=== PATIENT | female | born 1965 | race African-American/Black ===

== ENCOUNTER 2018-09-21 15:52 | Emergency (ER) | payer SELFPAY ==
[~2018-09-21] VITALS: Ht 167.6 cm; Wt 68.0 kg
[2018-09-21 16:08] VITALS: BP 150/88
--- NOTE | 2018-09-21 16:44 | PHYS DOC ---
Past Medical History Past Medical History: No Pertinent History Past Surgical History: No Surgical History Alcohol Use: Occasionally Drug Use: None Adult General Chief Complaint Chief Complaint: LOWER BACK PAIN OR INJURY HPI HPI Patient is a 52 year old female in no significant medical history who presents to the ED today complaining of mild intermittent left low back pain radiating to the left lower extremity for 3 weeks. Patient denies any known injury. She states the pain is worse on certain movements. She states she has not taken anything specifically to relieve the pain. Denies any loss of bowel bladder function, denies any numbness or tenderness to bilateral lower extremities. Review of Systems Review of Systems Constitutional: Denies fever or chills [] Eyes: Denies change in visual acuity, redness, or eye pain [] HENT: Denies nasal congestion or sore throat [] Respiratory: Denies cough or shortness of breath [] Cardiovascular: No additional information not addressed in HPI [] GI: Denies abdominal pain, nausea, vomiting, bloody stools or diarrhea [] : Denies dysuria or hematuria [] Musculoskeletal: Reports left low back pain radiating to the left lower extremity. Integument: Denies rash or skin lesions [] Neurologic: Denies headache, focal weakness or sensory changes [] All other systems were reviewed and found to be within normal limits, except as documented in this note. Allergies Allergies Allergies Coded Allergies Type Severity Reaction Last Updated Verified No Known Drug Allergies 09/21/18 No Physical Exam Physical Exam Constitutional: Well developed, well nourished, no acute distress, non-toxic appearance. [] HENT: Normocephalic, atraumatic, bilateral external ears normal, oropharynx moist, no oral exudates, nose normal. [] Eyes: PERRLA, EOMI, conjunctiva normal, no discharge. [] Neck: Normal range of motion, no tenderness, supple, no stridor. [] Cardiovascular:Heart rate regular rhythm, no murmur [] Lungs & Thorax: Bilateral breath sounds clear to auscultation [] Abdomen: Bowel sounds normal, soft, no tenderness, no masses, no pulsatile masses. [] Skin: Warm, dry, no erythema, no rash. [] Back: Tenderness on palpation of the left SI joint tenderness, no CVA tendernes s. Negative bilateral straight leg raises Extremities: No tenderness, no cyanosis, no clubbing, ROM intact, no edema. [] Neurologic: Alert and oriented X 3, normal motor function, normal sensory function, no focal deficits noted. [] Psychologic: Affect normal, judgement normal, mood normal. [] Current Patient Data Vital Signs Vital Signs Date Time Temp Pulse Resp B/P (MAP) Pulse Ox O2 Delivery O2 Flow Rate FiO2 09/21/18 16:08 99.0 91 18 150/88 (108) 96 Room Air 99.0 Lab Values Laboratory Tests Test 09/21/18 16:13 Urine Color Yellow Urine Clarity Clear Urine pH 5.5 Urine Specific [place] 1.020 Urine Protein Negative mg/dL (NEG-TRACE) Urine Glucose (UA) Negative mg/dL (NEG) Urine Ketones (Stick) Negative mg/dL (NEG) Urine Blood Moderate (NEG) Urine Nitrite Negative (NEG) Urine Bilirubin Negative (NEG) Urine Urobilinogen Dipstick 0.2 mg/dL (0.2 mg/dL) Urine Leukocyte Esterase Small (NEG) Urine RBC 3-5 /HPF (0-2) Urine WBC 1-4 /HPF (0-4) Urine Squamous Epithelial Cells Occ /LPF Urine Bacteria Moderate /HPF (0-FEW) Urine Mucus Mod /LPF EKG EKG [] Radiology/Procedures Radiology/Procedures [] Course & Med Decision Making Course & Med Decision Making Pertinent Labs and Imaging studies reviewed. (See chart for details) This is a 52-year-old female patient presenting to the ED today with left low back pain radiating to the left lower extremity. No cauda equina syndrome symptoms. Positive for UTI, discharged on Bactrim for 3 days. Discharged on diclofenac, cyclobenzaprine, Medrol Dosepak for sciatica. Provided pain clinic for follow-up as an outpatient. Dragon Disclaimer Dragon Disclaimer This electronic medical record was generated, in whole or in part, using a voice recognition dictation system. Departure Departure Impression: Primary Impression: Urinary tract infection Additional Impression: Sciatica, left side Disposition: 01 HOME, SELF-CARE Condition: STABLE (neurologic he is usually twice usually joint disease is to go home.) Referrals: NO PCP (PCP) Follow up in two weeks Patient Instructions: Sciatica, [id number], Urinary Tract Infection Additional Instructions: You were evaluated in the emergency room with pain suspicious of sciatica nerve pain, you also have infection in your urine, we put you on antibiotics, ensure you complete them. Take the rest of the medications as ordered, do not drive or operate machinery on the cyclobenzaprine. Scripts Sulfamethoxazole/Trimethoprim (BACTRIM DS TABLET) 1 Each Tablet 1 TAB PO BID, #6 TAB Prov: NICHOLAS MACKEY APRN 09/21/18 Methylprednisolone (MEDROL) 4 Mg Tab.ds.pk 1 PKG PO UD, #1 PKG Prov: NICHOLAS MACKEY APRN 09/21/18 Diclofenac Sodium (DICLOFENAC SODIUM) 50 Mg Tablet.dr 1 TAB PO BID, #30 TAB 0 Refills Prov: NICHOLAS MACKEY APRN 09/21/18 Cyclobenzaprine Hcl (CYCLOBENZAPRINE HCL) 10 Mg Tablet 1 TAB PO TID, #30 TAB Prov: NICHOLAS MACKEY APRN 09/21/18 Problem Qualifiers Primary Impression: Urinary tract infection Urinary tract infection type: site unspecified Hematuria presence: without hematuria Qualified Codes: N39.0 - Urinary tract infection, site not specified NICHOLAS MACKEY APRN Sep 21, 2018 16:44
[2018-09-21 17:02] LABS: BILIRUBIN,URINE NEGATIVE (NEG); CLARITY,URINE CLEAR; COLOR,URINE YELLOW; NITRITE,URINE NEGATIVE (NEG); PH,URINE 5.5; PROTEIN,URINE NEGATIVE (NEG-TRACE); UROBILINOGEN,URINE 0.2 mg/dL (0.2 mg/dL)
[2018-09-21 17:13] LABS: BACTERIA,URINE MODERATE /HPF (0-FEW); SQUAMOUS EPITHELIAL CELL,UR OCC /LPF
[2018-09-21] MEDS ORDERED: DICL50TA4 PO (17:23)
[2018-09-21] MEDS ORDERED: CYCL10TA2 PO (17:23)
[2018-09-21] MEDS ORDERED: SULF1TAB24 PO (17:23)
[2018-09-21] MEDS ORDERED: METH4TAB2 PO (17:23)
== END 2018-09-21 17:33 | disposition home or self-care (01) ==
LOC: ER 15:52
DX: N39.0 Urinary tract infection, site not specified (principal); M54.42 Lumbago with sciatica, left side
CPT/HCPCS: 81001; 87086; 99284

== ENCOUNTER 2020-07-08 07:12 | Emergency (ER) | payer SELFPAY ==
[~2020-07-08] VITALS: Ht 167.6 cm; Wt 81.8 kg
[~2020-07-08 07:12] MED LIST: CYCL10TA2 PO; DICL50TA4 PO; METH4TAB2 PO; SULF1TAB24 PO
[2020-07-08] MEDS ORDERED: ONDANSETRON PF 4 MG/2 ML VIAL. IVP ONE (07:45)
[2020-07-08] MEDS ORDERED: IV NORMAL SALINE 1000ML BAG 1,000 ML IV ONE ×2 (07:45→09:00)
[2020-07-08] MEDS ORDERED: MORPHINE SULFATE 4 MG/ML VIAL. ONE (07:51)
[2020-07-08 07:52] LABS: BASO # 0.1 x10^3/uL (0.0-0.2); BASO % 1 % (0-3); EOS % 0 % (0-3); HEMATOCRIT 33.5 % (36.0-47.0); HEMOGLOBIN 11.4 g/dL (12.0-15.5); LYMPH # 0.9 x10^3/uL (1.0-4.8); LYMPH % 8 % (24-48); MEAN CORPUSCULAR HEMOGLOBIN 29 pg (25-35); MEAN CORPUSCULAR HGB CONC 34 g/dL (31-37); MEAN CORPUSCULAR VOLUME 86 fL (79-100); MONO # 0.4 x10^3/uL (0.0-1.1); MONO % 4 % (0-9); NEUT # 9.6 x10^3/uL (1.8-7.7); NEUT % 87 % (31-73); PLATELET COUNT 296 x10^3/uL (140-400); RED BLOOD COUNT 3.91 x10^6/uL (3.50-5.40); RED CELL DISTRIBUTION WIDTH 13.3 % (11.5-14.5); WHITE BLOOD COUNT 11.1 x10^3/uL (4.0-11.0)
[2020-07-08] MEDS ORDERED: MORPHINE SULFATE 4 MG/ML VIAL. IV ONE (08:00)
[2020-07-08 08:06] LABS: CALCIUM 9.4 mg/dL (8.5-10.1); CREATININE 1.3 mg/dL (0.6-1.0); GFR 51.3; POTASSIUM 3.7 mmol/L (3.5-5.1)
[2020-07-08 08:12] LABS: ALBUMIN 3.8 g/dL (3.4-5.0); ALBUMIN/GLOBULIN RATIO 0.8 (1.0-1.7); TOTAL BILIRUBIN 0.3 mg/dL (0.2-1.0); TOTAL PROTEIN 8.5 g/dL (6.4-8.2)
[2020-07-08] MEDS ORDERED: IOHEXOL 300 MG/ML 100ML VIAL. IV ONE (08:45)
[2020-07-08] MEDS ORDERED: CONTRAST GIVEN. MC PRN (08:45)
--- NOTE | 2020-07-08 09:02 | RAD ---
CT of the abdomen pelvis with contrast. HISTORY: Right lower quadrant abdominal pain CT scan the abdomen pelvis was done using 60 mL Omnipaque 300 contrast. There are bilateral breast no dules, correlation with any previous mammography or breast ultrasound be of benefit. Lung bases are c lear. There is no effusion. Liver is normal in appearance. Spleen is unremarkable. Adrenal glands are normal. Pancreas is unremarkable. Left kidney is normal. There is decreased enhancement of the right kidney. There is right hydronephrosis. There is a 5 mm calculus in the proximal right ureter. Append ix is normal. There is an umbilical hernia. There is no bowel obstruction or ascites. There is a prom inent pedunculated leiomyoma extending off the left side of the uterus measuring 5.8 x 3.9 cm. Ovarie s appear normal. There is diverticulosis of the colon without an acute diverticulitis. There is no ca lcified gallstone in the gallbladder or gallbladder wall thickening IMPRESSION: 1. 5 mm calculus in the proximal right ureter with right hydronephrosis and right renal obstruction. 2. Normal appendix. 3. Prominent uterine leiomyoma 4. Multiple breast nodules, mammography and breast ultrasound recommended unless the patient's had th cynthia recently evaluated. 5. Umbilical hernia. PQRS Compliance Statement: One or more of the following individualized dose reduction techniques were utilized for this examinat ion: 1. Automated exposure control 2. Adjustment of the mA and/or kV according to patient size 3. Use of iterative reconstruction technique Electronically signed by: Marlon Perez MD (07/08/2020 9:00 AM) [facility]
--- NOTE | 2020-07-08 09:06 | PHYS DOC ---
Past Medical History Past Medical History: No Pertinent History Past Surgical History: No Surgical History Smoking Status: Never Smoker Alcohol Use: None Drug Use: None General Adult EDM: Chief Complaint: NAUSEA/VOMITING/DIARRHA HPI: HPI: Patient is a 54 year old female who presented to ER for evaluation of right side abdominal pain since yesterday. Patient also has some nausea vomiting. Patient denies any cough or fever. Patient described the pain as sharp aching in nature, patient denies any exposure to anybody with coronavirus. Patient said nothing make the pain worse or better. Review of Systems: Review of Systems: Constitutional: Denies fever or chills. [] Eyes: Denies change in visual acuity. [] HENT: Denies nasal congestion or sore throat. [] Respiratory: Denies cough or shortness of breath. [] Cardiovascular: Denies chest pain or edema. [] GI: Positive for right abdominal pain with nausea vomiting, no diarrhea : Denies dysuria. [] Musculoskeletal: Denies back pain or joint pain. [] Integument: Denies rash. [] Neurologic: Denies headache, focal weakness or sensory changes. [] Endocrine: Denies polyuria or polydipsia. [] Lymphatic: Denies swollen glands. [] Psychiatric: Denies depression or anxiety. [] Heart Score: Risk Factors: Risk Factors: DM, Current or recent (<one month) smoker, HTN, HLP, family history of CAD, obesity. Risk Scores: Score 0 - 3: 2.5% MACE over next 6 weeks - Discharge Home Score 4 - 6: 20.3% MACE over next 6 weeks - Admit for Clinical Observation Score 7 - 10: 72.7% MACE over next 6 weeks - Early Invasive Strategies Current Medications: Current Medications Medications (Trade) Dose Ordered Sig/Rachell Start Time Stop Time Status Last Admin Dose Admin Info (CONTRAST GIVEN -- Rx MONITORING) 1 each PRN DAILY PRN 07/08/20 08:45 07/10/20 08:44 Iohexol (Omnipaque 300 Mg/ml) 60 ml 1X ONCE 07/08/20 08:45 07/08/20 08:46 DC 07/08/20 08:51 60 ML Morphine Sulfate (Morphine Sulfate) 4 mg STK-MED ONCE 07/08/20 07:51 07/08/20 07:52 DC Ondansetron HCl (Zofran) 4 mg 1X ONCE 07/08/20 07:45 07/08/20 07:46 DC 07/08/20 07:55 4 MG Sodium Chloride 1,000 ml @ 1,000 mls/hr 1X ONCE 07/08/20 09:00 07/08/20 09:59 Allergies: Allergies: Allergies Coded Allergies Type Severity Reaction Last Updated Verified No Known Drug Allergies 09/21/18 No Physical Exam: PE: Constitutional: Well developed, well nourished, in mild acute distress due to pain, non-toxic appearance. [] HENT: Normocephalic, atraumatic, bilateral external ears normal, oropharynx moist, no oral exudates, nose normal. [] Eyes: PERRLA, EOMI, conjunctiva normal, no discharge. [] Neck: Normal range of motion, no tenderness, supple, no stridor. [] Cardiovascular:Heart rate regular rhythm, no murmur [] Lungs & Thorax: Bilateral breath sounds clear to auscultation [] Abdomen: Bowel sounds normal, soft, right lower abdominal pain, right CVA tenderness, no guarding, no rebound. Skin: Warm, dry, no erythema, no rash. [] Back: No tenderness, right CVA tenderness to palpation. [] Extremities: No tenderness, no cyanosis, no clubbing, ROM intact, no edema. [] Neurologic: Alert and oriented X 3, normal motor function, normal sensory function, no focal deficits noted. [] Psychologic: Affect normal, judgement normal, mood normal. [] Current Patient Data: Labs: Laboratory Tests Test 07/08/20 07:46 White Blood Count 11.1 x10^3/uL (4.0-11.0) H Red Blood Count 3.91 x10^6/uL (3.50-5.40) Hemoglobin 11.4 g/dL (12.0-15.5) L Hematocrit 33.5 % (36.0-47.0) L Mean Corpuscular Volume 86 fL (79-100) Mean Corpuscular Hemoglobin 29 pg (25-35) Mean Corpuscular Hemoglobin Concent 34 g/dL (31-37) Red Cell Distribution Width 13.3 % (11.5-14.5) Platelet Count 296 x10^3/uL (140-400) Neutrophils (%) (Auto) 87 % (31-73) H Lymphocytes (%) (Auto) 8 % (24-48) L Monocytes (%) (Auto) 4 % (0-9) Eosinophils (%) (Auto) 0 % (0-3) Basophils (%) (Auto) 1 % (0-3) Neutrophils # (Auto) 9.6 x10^3/uL (1.8-7.7) H Lymphocytes # (Auto) 0.9 x10^3/uL (1.0-4.8) L Monocytes # (Auto) 0.4 x10^3/uL (0.0-1.1) Eosinophils # (Auto) 0.0 x10^3/uL (0.0-0.7) Basophils # (Auto) 0.1 x10^3/uL (0.0-0.2) Platelet Estimate Pending Sodium Level 136 mmol/L (136-145) Potassium Level 3.7 mmol/L (3.5-5.1) Chloride Level 102 mmol/L (98-107) Carbon Dioxide Level 23 mmol/L (21-32) Anion Gap 11 (6-14) Blood Urea Nitrogen 12 mg/dL (7-20) Creatinine 1.3 mg/dL (0.6-1.0) H Estimated GFR (Cockcroft-Gault) 51.3 BUN/Creatinine Ratio 9 (6-20) Glucose Level 137 mg/dL (70-99) H Calcium Level 9.4 mg/dL (8.5-10.1) Total Bilirubin 0.3 mg/dL (0.2-1.0) Aspartate Amino Transferase (AST) 15 U/L (15-37) Alanine Aminotransferase (ALT) 23 U/L (14-59) Alkaline Phosphatase 60 U/L (46-116) Total Protein 8.5 g/dL (6.4-8.2) H Albumin 3.8 g/dL (3.4-5.0) Albumin/Globulin Ratio 0.8 (1.0-1.7) L Lipase 70 U/L (73-393) L Laboratory Tests 07/08/20 07:46 Laboratory Tests 07/08/20 07:46 Vital Signs: Vital Signs Date Time Temp Pulse Resp B/P (MAP) Pulse Ox O2 Delivery O2 Flow Rate FiO2 07/08/20 07:55 18 Room Air 07/08/20 07:14 98.4 78 148/82 (104) 100 98.4 EKG: EKG: [] Radiology/Procedures: Radiology/Procedures: [][facility] [address] [place] [address] IMAGING REPORT Signed PATIENT: MATHIEU TATUM ACCOUNT: [id number] : 1965 LOCATION: ER AGE: 54 SEX: F EXAM STATUS: REG ER ORD. PHYSICIAN: JABARI RUIZ DO REASON: RLQ ABDOMINAL PAIN PROCEDURE: CT ABD PELV W/ IV CONTRST ONLY CT of the abdomen pelvis with contrast. HISTORY: Right lower quadrant abdominal pain CT scan the abdomen pelvis was done using 60 mL Omnipaque 300 contrast. There are bilateral breast nodules, correlation with any previous mammography or breast ultrasound be of benefit. Lung bases are clear. There is no effusion. Liver is normal in appearance. Spleen is unremarkable. Adrenal glands are normal. Pancreas is unremarkable. Left kidney is normal. There is decreased enhancement of the right kidney. There is right hydronephrosis. There is a 5 mm calculus in the proximal right ureter. Appendix is normal. There is an umbilical hernia. There is no bowel obstruction or ascites. There is a prominent pedunculated leiomyoma extending off the left side of the uterus measuring 5.8 x 3.9 cm. Ovaries appear normal. There is diverticulosis of the colon without an acute diverticulitis. There is no calcified gallstone in the gallbladder or gallbladder wall thickening IMPRESSION: 1. 5 mm calculus in the proximal right ureter with right hydronephrosis and right renal obstruction. 2. Normal appendix. 3. Prominent uterine leiomyoma 4. Multiple breast nodules, mammography and breast ultrasound recommended unless the patient's had these recently evaluated. 5. Umbilical hernia. PQRS Compliance Statement: One or more of the following individualized dose reduction techniques were utilized for this examination: 1. Automated exposure control 2. Adjustment of the mA and/or kV according to patient size 3. Use of iterative reconstruction technique Electronically signed by: Marlon Saldaña MD (07/08/2020 9:00 AM) [facility] DICTATED and SIGNED BY: MARLON SALDAÑA MD DATE: 07/08/20 [id number] 0 Course & Med Decision Making: Course & Med Decision Making Pertinent Labs and Imaging studies reviewed. (See chart for details) Patient is a 54-year-old female who presented to ER due to right abdominal pain, CT scan of the abdomen pelvic show right side proximal ureteral stone 5 mm with some hydronephrosis . Patient was given pain medication in ER, she felt much better, she was pain-free at the time of discharge. Patient says she already knew about the nodules in her breasts. Patient was given a copy of her lab work, CT scan report today, she will need to follow-up with a urologist for outpatient evaluation and treatment next week. Dragon Disclaimer: Dragon Disclaimer: This electronic medical record was generated, in whole or in part, using a voice recognition dictation system. Departure Departure Impression: Primary Impression: Kidney stone on right side Disposition: 01 DC HOME SELF CARE/HOMELESS Condition: IMPROVED Referrals: NO PCP (PCP) Please call this [facility] [place] [address] [facility] [place], [place] [address] [phone] Patient Instructions: Kidney Stones Additional Instructions: Thank you for visiting our Emergency Department. We appreciate you trusting us with your care. If any additional problems come up don't hesitate to return to visit us. Please follow up with your primary care provider so they can plan additional care if needed and know about the problem that you had. If symptoms worsen come back to the Emergency Department. Any concerning symptoms that start such as chest pain, shortness of air, weakness or numbness on one side of the body, running high fevers or any other concerning symptoms return to the ER. Scripts Ondansetron Hcl (ZOFRAN) 4 Mg Tablet 1 TAB PO Q6HRS PRN for NAUSEA, #15 TAB Prov: JABARI RUIZ DO 07/08/20 Tamsulosin Hcl (FLOMAX) 0.4 Mg Cap.er.24h 1 CAP PO DAILY for 10 Days, #10 CAP 11 Refills Prov: JABARI RUIZ DO 07/08/20 Hydrocodone/Acetaminophen (Hydrocodone-Acetamin 5-325 mg) 1 Each Tablet 1 EACH PO Q6HRS PRN for PAIN, #20 TAB Prov: JABARI RUIZ DO 07/08/20 JABARI RUIZ DO Jul 08, 2020 09:06
[2020-07-08 09:25] LABS: % LYMPHS 10 % (24-48); % MONOS 6 % (0-10); % SEGS 84 % (35-66); PLT ESTIMATE ADEQUATE (ADEQUATE)
[2020-07-08] MEDS ORDERED: TAMSULOSIN 0.4 MG CAP.ER.24H. PO ONE (09:30)
[2020-07-08] MEDS ORDERED: KETOROLAC 30 MG/ML VIAL. IVP ONE (09:30)
[2020-07-08 09:43] LABS: BILIRUBIN,URINE NEGATIVE (NEG); CLARITY,URINE CLEAR; COLOR,URINE YELLOW; NITRITE,URINE NEGATIVE (NEG); PH,URINE 6.5 (<5.0-8.0); PROTEIN,URINE NEGATIVE (NEG-TRACE); UROBILINOGEN,URINE 0.2 mg/dL (0.2 mg/dL)
[2020-07-08 10:20] LABS: BACTERIA,URINE 0 /HPF (0-FEW)
[2020-07-08] MEDS ORDERED: HYDR-2759 PO (10:51)
[2020-07-08] MEDS ORDERED: ONDA4TAB7 PO (10:51)
[2020-07-08] MEDS ORDERED: TAMS0.4C97 PO (10:51)
[2020-07-08 11:00] VITALS: BP 144/85
== END 2020-07-08 11:45 | disposition home or self-care (01) ==
LOC: ER 07:12
DX: N13.2 Hydronephrosis with renal and ureteral calculous obstruction (principal)
CPT/HCPCS: 36415; 74177; 80053; 81001; 81025; 83690; 85007; 85025; 96361; 96374; 96375; 99285; J1885; J2270; J2405; J7030; Q9967

== ENCOUNTER 2020-07-11 07:01 | Emergency (ER) | payer SELFPAY ==
[~2020-07-11] VITALS: Ht 167.6 cm; Wt 82.0 kg
[~2020-07-11 07:01] MED LIST changes: +HYDR-2759 PO; +ONDA4TAB7 PO; +TAMS0.4C97 PO
[2020-07-11] MEDS ORDERED: MORPHINE SULFATE 4 MG/ML VIAL. IV ONE (07:15)
[2020-07-11] MEDS ORDERED: ONDANSETRON PF 4 MG/2 ML VIAL. IVP ONE (07:15)
[2020-07-11] MEDS ORDERED: MORPHINE SULFATE 4 MG/ML VIAL. ONE (07:17)
[2020-07-11] MEDS ORDERED: KETOROLAC 15 MG/ML VIAL. IVP ONE (07:30)
[2020-07-11] MEDS ORDERED: IV NORMAL SALINE 1000ML BAG 1,000 ML IV ONE ×2 (07:30)
--- NOTE | 2020-07-11 07:33 | ED.ADGEN ---
Past Medical History Past Medical History: No Pertinent History Past Surgical History: No Surgical History Smoking Status: Never Smoker Alcohol Use: None Drug Use: None General Adult EDM: Chief Complaint: FLANK PAIN HPI: HPI: Patient is a 54 year old female presenting via EMS for worsening right flank pain. She was seen here 3 days ago and diagnosed with a right-sided kidney stone that was 5 mm. Sent home with Zofran and hydrocodone. Patient says around 1 AM the pain became more severe, she took hydrocodone without improvement. Patient states she is also had nausea and vomiting. Has not had a bowel movement in the last few days. Denies any other complaints or changes in urination. Patient states she has not been having any blood in the urine either. No prior history of kidney stones Review of Systems: Review of Systems: All other systems within normal limits except for as noted in the HPI Current Medications: Current Medications Medications (Trade) Dose Ordered Sig/Rachell Start Time Stop Time Status Last Admin Dose Admin Ketorolac Tromethamine (Toradol 15mg Vial) 15 mg 1X ONCE 07/11/20 07:30 07/11/20 07:31 DC 07/11/20 07:27 15 MG Morphine Sulfate (Morphine Sulfate) 4 mg STK-MED ONCE 07/11/20 07:17 07/11/20 07:18 DC Ondansetron HCl (Zofran) 4 mg 1X ONCE 07/11/20 07:15 07/11/20 07:17 DC 07/11/20 07:23 4 MG Sodium Chloride 1,000 ml @ 1,000 mls/hr 1X ONCE 07/11/20 07:30 07/11/20 08:29 DC 07/11/20 09:00 1,000 MLS/HR Allergies: Allergies: Allergies Coded Allergies Type Severity Reaction Last Updated Verified No Known Drug Allergies 09/21/18 No Physical Exam: PE: Constitutional: Well developed, well nourished, moderate acute distress, non- toxic appearance. [] HENT: Normocephalic, atraumatic, bilateral external ears normal, nose normal. [] Eyes: PERRLA, conjunctiva normal, no discharge. [] Neck: No rigidity, supple, no stridor. [] Cardiovascular: Regular rate and rhythm, brisk cap refill [] Lungs & Thorax: Non labored symmetric respirations, no tachypnea or respiratory distress [] Abdomen: Soft, nondistended, right flank and lower quadrant abdominal pain Skin: Warm, dry, no erythema, no rash. [] Back: Unremarkable Extremities: No deformities, range of motion grossly intact, no lower extremity edema [] Neurologic: Alert and oriented X 3, no focal deficits noted. [] Psychologic: Affect normal, judgement normal, mood normal. [] Current Patient Data: Labs: Laboratory Tests Test 07/11/20 07:34 07/11/20 08:13 White Blood Count 9.1 x10^3/uL (4.0-11.0) Red Blood Count 3.61 x10^6/uL (3.50-5.40) Hemoglobin 10.4 g/dL (12.0-15.5) L Hematocrit 31.1 % (36.0-47.0) L Mean Corpuscular Volume 86 fL (79-100) Mean Corpuscular Hemoglobin 29 pg (25-35) Mean Corpuscular Hemoglobin Concent 33 g/dL (31-37) Red Cell Distribution Width 12.7 % (11.5-14.5) Platelet Count 265 x10^3/uL (140-400) Neutrophils (%) (Auto) 81 % (31-73) H Lymphocytes (%) (Auto) 12 % (24-48) L Monocytes (%) (Auto) 7 % (0-9) Eosinophils (%) (Auto) 0 % (0-3) Basophils (%) (Auto) 1 % (0-3) Neutrophils # (Auto) 7.4 x10^3/uL (1.8-7.7) Lymphocytes # (Auto) 1.1 x10^3/uL (1.0-4.8) Monocytes # (Auto) 0.6 x10^3/uL (0.0-1.1) Eosinophils # (Auto) 0.0 x10^3/uL (0.0-0.7) Basophils # (Auto) 0.0 x10^3/uL (0.0-0.2) Sodium Level 135 mmol/L (136-145) L Potassium Level 3.7 mmol/L (3.5-5.1) Chloride Level 99 mmol/L (98-107) Carbon Dioxide Level 27 mmol/L (21-32) Anion Gap 9 (6-14) Blood Urea Nitrogen 8 mg/dL (7-20) Creatinine 1.2 mg/dL (0.6-1.0) H Estimated GFR (Cockcroft-Gault) 56.2 BUN/Creatinine Ratio 7 (6-20) Glucose Level 131 mg/dL (70-99) H Calcium Level 9.1 mg/dL (8.5-10.1) Total Bilirubin 0.2 mg/dL (0.2-1.0) Aspartate Amino Transferase (AST) 8 U/L (15-37) L Alanine Aminotransferase (ALT) 20 U/L (14-59) Alkaline Phosphatase 54 U/L (46-116) Total Protein 7.1 g/dL (6.4-8.2) Albumin 3.4 g/dL (3.4-5.0) Albumin/Globulin Ratio 0.9 (1.0-1.7) L Urine Collection Type Void Urine Color Yellow Urine Clarity Clear Urine pH 6.5 (<5.0-8.0) Urine Specific [place] <=1.005 (1.000-1.030) Urine Protein Negative mg/dL (NEG-TRACE) Urine Glucose (UA) Negative mg/dL (NEG) Urine Ketones (Stick) Negative mg/dL (NEG) Urine Blood Moderate (NEG) Urine Nitrite Negative (NEG) Urine Bilirubin Negative (NEG) Urine Urobilinogen Dipstick 0.2 mg/dL (0.2 mg/dL) Urine Leukocyte Esterase Negative (NEG) Urine RBC 1-2 /HPF (0-2) Urine WBC 0 /HPF (0-4) Urine Squamous Epithelial Cells Few /LPF Urine Bacteria Few /HPF (0-FEW) Laboratory Tests 07/11/20 07:34 Laboratory Tests 07/11/20 07:34 Vital Signs: Vital Signs Date Time Temp Pulse Resp B/P (MAP) Pulse Ox O2 Delivery O2 Flow Rate FiO2 07/11/20 07:01 99.0 77 20 153/85 (107) 99 Room Air 99.0 EKG: EKG: [] Heart Score: Risk Factors: Risk Factors: DM, Current or recent (<one month) smoker, HTN, HLP, family history of CAD, obesity. Risk Scores: Score 0 - 3: 2.5% MACE over next 6 weeks - Discharge Home Score 4 - 6: 20.3% MACE over next 6 weeks - Admit for Clinical Observation Score 7 - 10: 72.7% MACE over next 6 weeks - Early Invasive Strategies Radiology/Procedures: Radiology/Procedures: CT ABDOMEN+PELVIS WO INDICATION: RLQ/flank pain, present right kidney stone EXAM: Noncontrast CT of the abdomen and pelvis. Coronal and sagittal reformatted images were performed. PQRS compliance statement: One or more of the following individualized dose reduction techniques were utilized for this examination: 1. Automated exposure control 2. Adjustment of the mA and/or kV according to patient size 3. Use of iterative reconstruction technique COMPARISON: 07/08/2020 FINDINGS: No free air, free fluid, or fluid collection. Lower chest: The visualized lower lungs are aerated. No pleural or pericardial effusion. ABDOMEN: Liver: The noncontrast liver is homogeneous in attenuation. Gallbladder and biliary: Normal gallbladder without radiopaque stone. Normal caliber bile ducts. Spleen: Normal spleen. Pancreas: The noncontrast pancreas is homogeneous in attenuation without peripancreatic inflammatory changes. Adrenal glands: Normal adrenal glands. Kidneys and ureters: Mild right hydroureteronephrosis with a 5 mm calculus in the proximal ureter, progressed approximately 10 mm from the prior exam. GI tract: The stomach is decompressed and poorly evaluated. Normal caliber small bowel and colon. Normal appendix. Vascular structures: Normal caliber abdominal aorta. Lymph nodes: No lymphadenopathy in the abdomen or pelvis. PELVIS: Genitourinary system: Normal bladder. Myomatous uterus. SKELETAL STRUCTURES AND SOFT TISSUES: No acute osseous abnormality. Moderate sized periumbilical hernia containing a segment of small bowel without evidence of obstruction. Unchanged partially visualized breast nodules. IMPRESSION: 1. Mild right hydroureteronephrosis with a 5 mm calculus in the proximal ureter, which has progressed approximately 10 mm from exam of 07/08/2020. 2. Moderate-sized umbilical hernia containing a segment of small bowel without evidence of obstruction. 3. Multiple incompletely characterized breast nodules again noted, which should be further evaluated with mammography if not performed recently. [] Course & Med Decision Making: Course & Med Decision Making Pertinent Labs and Imaging studies reviewed. (See chart for details) Pain resolved. Pain likely due to small moving. No signs of urinary tract infection or kidney injury. [] Dragon Disclaimer: Dragon Disclaimer: This electronic medical record was generated, in whole or in part, using a voice recognition dictation system. Departure Departure Impression: Primary Impression: Kidney stone Disposition: 01 DC HOME SELF CARE/HOMELESS Condition: IMPROVED Referrals: NO PCP (PCP) Additional Instructions: Follow-up with [facility] [address] [place] [address] Scripts Ibuprofen (IBUPROFEN) 800 Mg Tablet 800 MG PO PRN Q8HRS PRN for PAIN for 10 Days, #20 TAB Prov: GERALDINE WILDER MD 07/11/20 GERALDINE WILDER MD Jul 11, 2020 07:33
[2020-07-11 07:53] LABS: CALCIUM 9.1 mg/dL (8.5-10.1); CREATININE 1.2 mg/dL (0.6-1.0); GFR 56.2; POTASSIUM 3.7 mmol/L (3.5-5.1)
[2020-07-11 07:59] LABS: ALBUMIN 3.4 g/dL (3.4-5.0); ALBUMIN/GLOBULIN RATIO 0.9 (1.0-1.7); TOTAL BILIRUBIN 0.2 mg/dL (0.2-1.0); TOTAL PROTEIN 7.1 g/dL (6.4-8.2)
[2020-07-11 08:04] LABS: BASO % 1 % (0-3); EOS % 0 % (0-3); HEMATOCRIT 31.1 % (36.0-47.0); HEMOGLOBIN 10.4 g/dL (12.0-15.5); LYMPH # 1.1 x10^3/uL (1.0-4.8); LYMPH % 12 % (24-48); MEAN CORPUSCULAR HEMOGLOBIN 29 pg (25-35); MEAN CORPUSCULAR HGB CONC 33 g/dL (31-37); MEAN CORPUSCULAR VOLUME 86 fL (79-100); MONO # 0.6 x10^3/uL (0.0-1.1); MONO % 7 % (0-9); NEUT # 7.4 x10^3/uL (1.8-7.7); NEUT % 81 % (31-73); PLATELET COUNT 265 x10^3/uL (140-400); RED BLOOD COUNT 3.61 x10^6/uL (3.50-5.40); RED CELL DISTRIBUTION WIDTH 12.7 % (11.5-14.5); WHITE BLOOD COUNT 9.1 x10^3/uL (4.0-11.0)
--- NOTE | 2020-07-11 08:08 | RAD ---
CT ABDOMEN+PELVIS WO INDICATION: RLQ/flank pain, present right kidney stone EXAM: Noncontrast CT of the abdomen and pelvis. Coronal and sagittal reformatted images were perform ed. PQRS compliance statement: One or more of the following individualized dose reduction techniques were utilized for this examinat ion: 1. Automated exposure control 2. Adjustment of the mA and/or kV according to patient size 3. Use of iterative reconstruction technique COMPARISON: 07/08/2020 FINDINGS: No free air, free fluid, or fluid collection. Lower chest: The visualized lower lungs are aerated. No pleural or pericardial effusion. ABDOMEN: Liver: The noncontrast liver is homogeneous in attenuation. Gallbladder and biliary: Normal gallbladder without radiopaque stone. Normal caliber bile ducts. Spleen: Normal spleen. Pancreas: The noncontrast pancreas is homogeneous in attenuation without peripancreatic inflammatory changes. Adrenal glands: Normal adrenal glands. Kidneys and ureters: Mild right hydroureteronephrosis with a 5 mm calculus in the proximal ureter, pr ogressed approximately 10 mm from the prior exam. GI tract: The stomach is decompressed and poorly evaluated. Normal caliber small bowel and colon. Nor mal appendix. Vascular structures: Normal caliber abdominal aorta. Lymph nodes: No lymphadenopathy in the abdomen or pelvis. PELVIS: Genitourinary system: Normal bladder. Myomatous uterus. SKELETAL STRUCTURES AND SOFT TISSUES: No acute osseous abnormality. Moderate sized periumbilical paul ia containing a segment of small bowel without evidence of obstruction. Unchanged partially visualize d breast nodules. IMPRESSION: 1. Mild right hydroureteronephrosis with a 5 mm calculus in the proximal ureter, which has progressed approximately 10 mm from exam of 07/08/2020. 2. Moderate-sized umbilical hernia containing a segment of small bowel without evidence of obstructio n. 3. Multiple incompletely characterized breast nodules again noted, which should be further evaluated with mammography if not performed recently. Electronically signed by: Familia Lema MD (07/11/2020 8:06 AM) [id number]
[2020-07-11 09:11] LABS: BILIRUBIN,URINE NEGATIVE (NEG); CLARITY,URINE CLEAR; COLOR,URINE YELLOW; NITRITE,URINE NEGATIVE (NEG); PH,URINE 6.5 (<5.0-8.0); PROTEIN,URINE NEGATIVE (NEG-TRACE); UROBILINOGEN,URINE 0.2 mg/dL (0.2 mg/dL)
[2020-07-11 09:23] VITALS: BP 133/90
[2020-07-11 09:46] LABS: BACTERIA,URINE FEW /HPF (0-FEW); WBC,URINE 0 /HPF (0-4)
[2020-07-11] MEDS ORDERED: IBUP-1060 PO (10:21)
== END 2020-07-11 11:35 | disposition home or self-care (01) ==
LOC: ER 07:01
DX: N13.2 Hydronephrosis with renal and ureteral calculous obstruction (principal); R11.2 Nausea with vomiting, unspecified; R10.9 Unspecified abdominal pain
CPT/HCPCS: 36415; 74176; 80053; 81001; 85025; 96361; 96374; 96375; 99284; J1885; J2270; J2405; J7030

== ENCOUNTER 2021-08-28 06:49 | Emergency (ER) | payer SELFPAY ==
[~2021-08-28] VITALS: Ht 170.2 cm; Wt 65.9 kg
[~2021-08-28 06:49] MED LIST changes: +CYCL10TA19 PO; -CYCL10TA2 PO; +IBUP-1060 PO
--- NOTE | 2021-08-28 07:03 | PHYS DOC ---
Past Medical History Past Medical History: Other Additional Past Medical Histor: NEPHROLITHIASIS Past Surgical History: No Surgical History Smoking Status: Never Smoker Alcohol Use: None Drug Use: None Adult General Chief Complaint Chief Complaint: CHEST PAIN HPI HPI Patient is a 55 year old female presents with chest pain that started about 1 hour prior to arrival. This is a substernal pressure that does not radiate. No associated nausea, vomiting or diaphoresis. Mild shortness of breath is improved. She has not had a fever or cough. No history of diabetes, hyper tension or hypercholesterolemia. She does have a family history is positive for heart disease. No tobacco or drug use. Patient was at rest when the pain began. Review of Systems Review of Systems Constitutional: Denies fever Eyes: Denies change in visual acuity or eye pain HENT: Denies sore throat Respiratory: Denies shortness of breath Cardiovascular: Reports chest pain GI: Denies abd pain : Denies dysuria Musculoskeletal: Denies back or extremity injury Integument: Denies rash or skin lesions Neurologic: Denies headache, focal weakness or sensory changes All other systems were reviewed and found to be within normal limits, except as documented in this note. Current Medications Current Medications Current Medications Medications (Trade) Dose Ordered Sig/Rachell Start Time Stop Time Status Last Admin Dose Admin Aspirin (Aspirin Chewable) 324 mg 1X ONCE 08/28/21 07:15 08/28/21 07:16 DC 08/28/21 07:20 243 MG Famotidine (Pepcid Vial) 20 mg 1X ONCE 08/28/21 07:00 08/28/21 07:02 DC 08/28/21 07:16 20 MG Morphine Sulfate (Morphine Sulfate) 2 mg 1X ONCE 08/28/21 07:00 08/28/21 07:02 DC 08/28/21 07:15 2 MG Nitroglycerin (Nitro-Bid Oint) 1 inch 1X ONCE 08/28/21 07:15 08/28/21 07:16 DC 08/28/21 07:20 1 INCH Ondansetron HCl (Zofran) 4 mg 1X ONCE 08/28/21 07:00 08/28/21 07:02 DC 08/28/21 07:15 4 MG Sodium Chloride 1,000 ml @ 1,000 mls/hr 1X ONCE 08/28/21 07:00 08/28/21 07:59 DC 08/28/21 07:16 1,000 MLS/HR Allergies Allergies Allergies Coded Allergies Type Severity Reaction Last Updated Verified No Known Drug Allergies 08/28/21 No Physical Exam Physical Exam Constitutional: Well developed, well nourished, no acute distress, non-toxic appearance. HENT: Normocephalic, atraumatic, bilateral external ears normal, mucosa moist, nose normal. Eyes: EOMI, conjunctiva normal, no discharge. Neck: Normal range of motion, supple, no stridor, no meningeal signs. Cardiovascular: Regular rate and rhythm Lungs & Thorax: Bilateral breath sounds clear to auscultation Abdomen: Soft, no tenderness or obvious masses Skin: Warm, dry, no erythema, no rash. Extremities: No tenderness, no cyanosis, no clubbing, ROM intact, no edema. Neurologic: Alert and oriented, normal motor function, normal sensory function, no focal deficits noted. Psychologic: Affect normal, judgement normal, mood normal. Current Patient Data Vital Signs Vital Signs Date Time Temp Pulse Resp B/P (MAP) Pulse Ox O2 Delivery O2 Flow Rate FiO2 08/28/21 10:30 82 16 118/76 (90) 100 Room Air 08/28/21 06:50 98.0 98.0 Lab Values Laboratory Tests Test 08/28/21 07:13 08/28/21 07:30 08/28/21 10:54 White Blood Count 8.1 x10^3/uL (4.0-11.0) Red Blood Count 4.20 x10^6/uL (3.50-5.40) Hemoglobin 11.5 g/dL (12.0-15.5) L Hematocrit 36.2 % (36.0-47.0) Mean Corpuscular Volume 86 fL (79-100) Mean Corpuscular Hemoglobin 27 pg (25-35) Mean Corpuscular Hemoglobin Concent 32 g/dL (31-37) Red Cell Distribution Width 12.9 % (11.5-14.5) Platelet Count 344 x10^3/uL (140-400) Neutrophils (%) (Auto) 54 % (31-73) Lymphocytes (%) (Auto) 36 % (24-48) Monocytes (%) (Auto) 8 % (0-9) Eosinophils (%) (Auto) 2 % (0-3) Basophils (%) (Auto) 1 % (0-3) Neutrophils # (Auto) 4.4 x10^3/uL (1.8-7.7) Lymphocytes # (Auto) 2.9 x10^3/uL (1.0-4.8) Monocytes # (Auto) 0.6 x10^3/uL (0.0-1.1) Eosinophils # (Auto) 0.1 x10^3/uL (0.0-0.7) Basophils # (Auto) 0.1 x10^3/uL (0.0-0.2) Prothrombin Time 13.3 SEC (11.7-14.0) Prothrombin Time INR 1.0 (0.8-1.1) Activated Partial Thromboplast Time 31 SEC (24-38) D-Dimer (Kalyn) < 0.27 ug/mlFEU Sodium Level 141 mmol/L (136-145) Potassium Level 4.3 mmol/L (3.5-5.1) Chloride Level 103 mmol/L (98-107) Carbon Dioxide Level 28 mmol/L (21-32) Anion Gap 10 (6-14) Blood Urea Nitrogen 13 mg/dL (7-20) Creatinine 0.8 mg/dL (0.6-1.0) Estimated GFR (Cockcroft-Gault) 89.5 BUN/Creatinine Ratio 16 (6-20) Glucose Level 114 mg/dL (70-99) H Calcium Level 9.5 mg/dL (8.5-10.1) Magnesium Level 2.1 mg/dL (1.8-2.4) Total Bilirubin 0.2 mg/dL (0.2-1.0) Aspartate Amino Transferase (AST) 15 U/L (15-37) Alanine Aminotransferase (ALT) 18 U/L (14-59) Alkaline Phosphatase 59 U/L (46-116) Troponin I High Sensitivity 15 ng/L (4-50) 13 ng/L (4-50) JY-Syg-E-Type Natriuretic Peptide 6 pg/mL (0-124) Total Protein 8.8 g/dL (6.4-8.2) H Albumin 4.0 g/dL (3.4-5.0) Albumin/Globulin Ratio 0.8 (1.0-1.7) L Lipase 157 U/L (73-393) Influenza Type A Antigen Negative (NEGATIVE) Influenza Type B Antigen Negative (NEGATIVE) SARS-CoV-2 Antigen (Rapid) Negative (NEGATIVE) Laboratory Tests 08/28/21 07:13 Laboratory Tests 08/28/21 07:13 EKG EKG [] Interpretation Time: Twelve-lead EKG demonstrates a sinus rhythm with an overall rate of 92. [place], QRS and QT corrected intervals are within normal limits. QT corrected is borderline at [address] segment elevation. There is an 1 mm depression isolated in inferior lead III. T waves flipped in that lead as well. T waves are flattened in V3 and V4 as well. Radiology/Procedures Radiology/Procedures [] Course & Med Decision Making Course & Med Decision Making Pertinent Labs and Imaging studies reviewed. (See chart for details) [] Is a 55-year-old female with chest discomfort. EKG was negative for definitive evidence of ischemia. Troponin was negative and repeated 3 hours later, still negative. Labs are otherwise unrevealing. While back to reassess the patient the discomfort seems to be more in the abdominal region now. We will start her on Pepcid and Carafate and have her follow-up with her primary care physician. Her heart score is 3 and I do not think she requires admission. Having said that, I did encourage her to return to the emergency department if her pain becomes worse or if any other concerns arise. She is stable for dis charge at this time. Dragon Disclaimer Dragon Disclaimer This electronic medical record was generated, in whole or in part, using a voice recognition dictation system. Departure Departure Impression: Primary Impression: Chest pain Disposition: HOME / SELF CARE / HOMELESS Condition: STABLE Referrals: NO PCP (PCP) Patient Instructions: Chest Pain (Nonspecific) Scripts Famotidine (PEPCID) 20 Mg Tablet 20 MG PO BID for 30 Days, #60 TAB Prov: ROSANNA HERNANDEZ MD 08/28/21 Sucralfate (CARAFATE) 1 Gm Tablet 1 TAB PO QID for 30 Days, #120 TAB 0 Refills Prov: ROSANNA HERNANDEZ MD 08/28/21 ROSANNA HERNANDEZ MD Aug 28, 2021 07:03
[2021-08-28] MEDS: MORPHINE SULFATE 2 MG/ML INJ. IVP ONE (07:15)
[2021-08-28] MEDS: ONDANSETRON PF 4 MG/2 ML VIAL. IVP ONE (07:15)
[2021-08-28] MEDS: IV NORMAL SALINE 1000ML BAG 1,000 ML IV ONE (07:16)
[2021-08-28] MEDS: FAMOTIDINE 20 MG/2 ML VIAL IVP ONE (07:16)
[2021-08-28] MEDS: ASPIRIN CHEWABLE 81 MG TABLET. PO ONE (07:20)
[2021-08-28] MEDS: NITROGLYCERIN OINT 1 GM PACKET. TP ONE (07:20)
--- NOTE | 2021-08-28 07:23 | EKG ---
[facility] [address] [place] [address] Test Date: 2021-08-28 Test Time: 06:59:40 Pat Name: MATHIEU TATUM Department: Room: Gender: F Associate Account Executive: : 1965 Requested By: ROSANNA HERNANDEZ Order Number: [id number] Reading MD: Isiah Kenyon Measurements Intervals Alpha Rate: 92 P: 29 [place]: 138 QRS: 16 QRSD: 84 T: 9 QT: 394 QTc: 493 Interpretive Statements SINUS RHYTHM QRS(T) CONTOUR ABNORMALITY CONSIDER ANTEROSEPTAL MYOCARDIAL DAMAGE PROLONGED QT POSSIBLY ABNORMAL ECG RI6.01 No previous ECG available for comparison Electronically Signed On 09-01-2021 21:46:13 CDT by Isiah Kenyon
--- NOTE | 2021-08-28 07:35 | RAD ---
EXAM: Chest, single view. HISTORY: Chest pain. COMPARISON: None. FINDINGS: A frontal view of the chest is obtained. There is no infiltrate, pleural effusion or pneumo thorax. The heart is normal in size. IMPRESSION: No acute pulmonary finding. Electronically signed by: Kaylie Cortes MD (08/28/2021 7:32 AM) [facility]
[2021-08-28 07:43] LABS: BASO # 0.1 x10^3/uL (0.0-0.2); BASO % 1 % (0-3); EOS # 0.1 x10^3/uL (0.0-0.7); EOS % 2 % (0-3); HEMATOCRIT 36.2 % (36.0-47.0); HEMOGLOBIN 11.5 g/dL (12.0-15.5); LYMPH # 2.9 x10^3/uL (1.0-4.8); LYMPH % 36 % (24-48); MEAN CORPUSCULAR HEMOGLOBIN 27 pg (25-35); MEAN CORPUSCULAR HGB CONC 32 g/dL (31-37); MEAN CORPUSCULAR VOLUME 86 fL (79-100); MONO # 0.6 x10^3/uL (0.0-1.1); MONO % 8 % (0-9); NEUT # 4.4 x10^3/uL (1.8-7.7); NEUT % 54 % (31-73); PLATELET COUNT 344 x10^3/uL (140-400); RED CELL DISTRIBUTION WIDTH 12.9 % (11.5-14.5); WHITE BLOOD COUNT 8.1 x10^3/uL (4.0-11.0)
[2021-08-28 07:52] LABS: PARTIAL THROMBOPLASTIN TIME 31 SEC (24-38)
[2021-08-28 07:53] LABS: CALCIUM 9.5 mg/dL (8.5-10.1); CREATININE 0.8 mg/dL (0.6-1.0); GFR 89.5; POTASSIUM 4.3 mmol/L (3.5-5.1)
[2021-08-28 07:54] LABS: INFLUENZA A PATIENT NEGATIVE (NEGATIVE); INFLUENZA B PATIENT NEGATIVE (NEGATIVE)
[2021-08-28 07:57] LABS: ALBUMIN/GLOBULIN RATIO 0.8 (1.0-1.7); MAGNESIUM 2.1 mg/dL (1.8-2.4); TOTAL BILIRUBIN 0.2 mg/dL (0.2-1.0); TOTAL PROTEIN 8.8 g/dL (6.4-8.2)
[2021-08-28 08:22] LABS: PROTHROMBIN TIME PATIENT 13.3 SEC (11.7-14.0)
[2021-08-28 08:23] LABS: D-DIMER < 0.27 ug/mlFEU (0.00-0.50)
[2021-08-28] MEDS ORDERED: FAMO-63 PO (13:15)
[2021-08-28] MEDS ORDERED: SUCR1TAB35 PO (13:15)
[2021-08-28 13:30] VITALS: BP 118/76
== END 2021-08-28 13:47 | disposition home or self-care (01) ==
LOC: ER 06:49
DX: R07.2 Precordial pain (principal); R06.02 Shortness of breath; Z20.822 Contact with and (suspected) exposure to COVID-19; Z86.79 Personal history of other diseases of the circulatory system
CPT/HCPCS: 36415; 71045; 80053; 83690; 83735; 83880; 84484; 85025; 85379; 85610; 85730; 87428; 93005; 96361; 96374; 96375; 99285; J2270; J2405; J3490; J7030